=== PATIENT | female | born 1950 | race African-American/Black ===

== ENCOUNTER 2016-02-25 18:11 | Outpatient (CLI) | payer MEDICARE ==
[2016-02-25 20:19] LABS: ALT (SGPT) 12 U/L (0-55); AST (SGOT) 12 U/L (5-34); Alkaline Phosphatase 67 U/L (40-150); Anion Gap 18 mmol/L (10-20); BUN (Urea Nitrogen) 18 mg/dL (9.8-20.1); Bilirubin, Total 0.5 mg/dL (0.2-1.2); Calc. Creatinine Clearance 0 mL/min (70-130); Carbon Dioxide 24 mmol/L (23-31); Chloride 107 mmol/L (98-107); Estimated GFR-MDRD 79; Globulin 3.3 g/dL (2.4-3.5); LDL Cholesterol, Calculated 77 mg/dL; Protein, Total 7.7 g/dL (5.8-8.1)
[2016-02-25 20:29] LABS: #Basophils 0.1 thou/uL (0.0-0.2); #Eosinphils 0.1 thou/uL (0.0-0.7); #Lymphocytes 2.3 thou/uL (1.20-3.40); #Monocytes 0.4 thou/uL (0.11-0.59); #Neutrophils 2.7 thou/uL (1.40-6.50); %Basophils 1.2 % (0.0-1.0); %Eosinophils 1.3 % (0.0-10.0); %Lymphocytes 41.1 % (21.0-51.0); %Monocytes 6.4 % (0.0-10.0); Hematocrit 45.9 % (36.0-47.0); Mean Platelet Volume 7.4 fL (7.4-10.4); Red Blood Cell (RBC) Count 4.65 mill/uL (4.20-5.40); White Blood Cell (WBC) Count 5.5 thou/uL (4.8-10.8)
[2016-02-25 20:42] LABS: Hemoglobin A1c 5.5 % (4.0-6.0)
== END 2016-02-25 18:12 | disposition home or self-care (01) ==
LOC: NAV SJFMSP 18:11
PROVIDERS: ATTEND Family Medicine
DX: E11.9 Type 2 diabetes mellitus without complications (principal); G40.909 Epilepsy, unspecified, not intractable, without status epilepticus
CPT/HCPCS: 80053; 80061; 80177; 82043; 82570; 83036; 84439; 84443; 85025

== ENCOUNTER 2017-03-10 08:42 | Emergency (ER) | payer MEDICARE ==
[2017-03-10] MEDS ORDERED: Sodium Chloride 0.9% 1,000 ML ONE (09:15)
[2017-03-10] MEDS ORDERED: Acetaminophen/Codeine 30-300mg Tablet ONE (09:16)
[2017-03-10 10:00] LABS: #Basophils 0.1 thou/uL (0.0-0.2); #Lymphocytes 0.8 thou/uL (1.20-3.40); #Monocytes 0.6 thou/uL (0.11-0.59); %Basophils 1.3 % (0.0-1.0); %Eosinophils 0.6 % (0.0-10.0); %Lymphocytes 11.8 % (21.0-51.0); %Monocytes 9.8 % (0.0-10.0); %Neutrophils 76.5 % (42.0-75.0); Hemoglobin 12.7 g/dL (12.0-16.0); Mean Corpuscular HGB CONC 30.9 g/dL (32.0-36.0); Mean Corpuscular Hemoglobin 27.1 pg (27.0-31.0); Mean Corpuscular Volume 87.7 fl (81.0-99.0); Mean Platelet Volume 9.3 fL (7.4-10.4); Platelet Count 160 thou/uL (130-400); Red Blood Cell (RBC) Count 4.68 mill/uL (4.20-5.40); White Blood Cell (WBC) Count 6.5 thou/uL (4.8-10.8)
[2017-03-10 10:16] LABS: ALT (SGPT) 13 U/L (8-55); AST (SGOT) 12 U/L (5-34); Alkaline Phosphatase 88 U/L (40-150); Anion Gap 17 mmol/L (10-20); BUN (Urea Nitrogen) 7 mg/dL (9.8-20.1); Bilirubin, Total 0.4 mg/dL (0.2-1.2); Calc. Creatinine Clearance 0 mL/min (70-130); Calcium 9.4 mg/dL (7.8-10.44); Carbon Dioxide 23 mmol/L (23-31); Chloride 103 mmol/L (98-107); Estimated GFR-MDRD Greater than 90; Globulin 3.4 g/dL (2.4-3.5); Glucose 139 mg/dL (80-115); Potassium 3.9 mmol/L (3.5-5.1); Protein, Total 7.4 g/dL (6.0-8.3); Sodium 139 mmol/L (136-145)
[2017-03-10] MEDS ORDERED: Ketorolac Tromethamine 30 MG/ML VIAL ONE (10:51)
--- NOTE | 2017-03-10 11:53 | RAD ---
CHEST PA AND LATERAL: HISTORY: A 66-year-old female with a history of cough, hypertension, diabetes mellitus, coronary artery diseas e, and CVA with cough, congestion, and subjective fever for 3 days. COMPARISON: 12/24/13. FINDINGS: Heart size is within normal limits. Atherosclerosis of the aorta. Postop changes of the cervical sp ine. IMPRESSION: No acute intrathoracic disease. Stable from prior study. POS: [facility]
== END 2017-03-10 11:25 | disposition home or self-care (01) ==
LOC: NAV ERS 08:42
DX: J10.1 Influenza due to other identified influenza virus with other respiratory manifestations (principal); I25.10 Atherosclerotic heart disease of native coronary artery without angina pectoris; E78.5 Hyperlipidemia, unspecified; E11.9 Type 2 diabetes mellitus without complications; I10 Essential (primary) hypertension; F41.9 Anxiety disorder, unspecified; F32.9 Major depressive disorder, single episode, unspecified; Z79.899 Other long term (current) drug therapy; Z79.84 Long term (current) use of oral hypoglycemic drugs
CPT/HCPCS: 71046; 80053; 82553; 83880; 84484; 85025; 87804; 93005; 94640; 96361; 96374; J1885; J7050; J7620

== ENCOUNTER 2018-02-08 17:15 | Emergency (ER) | payer MEDICARE ==
[2018-02-08] MEDS ORDERED: methylPREDNISolone Sod Succ/PF 125 MG/2 ML VIAL ONE (18:01)
== END 2018-02-08 18:20 | disposition home or self-care (01) ==
LOC: NAV ERS 17:15
DX: M54.12 Radiculopathy, cervical region (principal); I25.10 Atherosclerotic heart disease of native coronary artery without angina pectoris; E78.5 Hyperlipidemia, unspecified; I10 Essential (primary) hypertension; K21.9 Gastro-esophageal reflux disease without esophagitis; F41.9 Anxiety disorder, unspecified; F32.9 Major depressive disorder, single episode, unspecified; E11.9 Type 2 diabetes mellitus without complications; J45.909 Unspecified asthma, uncomplicated; Z86.73 Personal history of transient ischemic attack (TIA), and cerebral infarction without residual deficits; Z79.84 Long term (current) use of oral hypoglycemic drugs; Z79.899 Other long term (current) drug therapy
CPT/HCPCS: 36416; 96372; J2930

== ENCOUNTER 2018-07-23 06:45 | Outpatient (CLI) | payer MEDICARE ==
[2018-07-23 07:05] LABS: ALT (SGPT) 9 U/L (8-55); AST (SGOT) 11 U/L (5-34); Albumin 3.5 g/dL (3.4-4.8); Alkaline Phosphatase 94 U/L (40-150); Anion Gap 13 mmol/L (10-20); BUN (Urea Nitrogen) 10 mg/dL (9.8-20.1); Bilirubin, Total 0.3 mg/dL (0.2-1.2); Calc. Creatinine Clearance 0 mL/min (70-130); Calcium 9.2 mg/dL (7.8-10.44); Carbon Dioxide 25 mmol/L (23-31); Chloride 109 mmol/L (98-107); Estimated GFR-MDRD Greater than 90; Globulin 2.9 g/dL (2.4-3.5); Glucose 84 mg/dL (80-115); Protein, Total 6.4 g/dL (6.0-8.3); Sodium 143 mmol/L (136-145)
[2018-07-23 07:34] LABS: Hemoglobin 8.5 g/dL (12.0-16.0); Mean Corpuscular HGB CONC 28.8 g/dL (32.0-36.0); Mean Corpuscular Hemoglobin 24.3 pg (27.0-31.0); Mean Corpuscular Volume 84.3 fL (78.0-98.0); Mean Platelet Volume 7.1 fL (7.4-10.4); Platelet Count 393 thou/uL (130-400); RBC Distribution Width 17.2 % (11.5-14.5); Red Blood Cell (RBC) Count 3.52 mill/uL (4.20-5.40); White Blood Cell (WBC) Count 5.1 thou/uL (4.8-10.8)
== END 2018-07-23 06:46 | disposition home or self-care (01) ==
LOC: NAV LAB 06:45
PROVIDERS: ATTEND Internal Medicine
DX: J44.9 Chronic obstructive pulmonary disease, unspecified (principal); I10 Essential (primary) hypertension; R07.9 Chest pain, unspecified
CPT/HCPCS: 36415; 80053; 84484; 85027

== ENCOUNTER 2020-05-21 16:26 | Inpatient (IN) | payer MEDICARE ==
[2020-05-21] MEDS ORDERED: Ventolin HFA Inhaler 60 PUFF INHALER INH PRN (17:51)
[2020-05-21] MEDS ORDERED: Senokot S 8.6-50 MG TAB PO PRN (17:55)
[2020-05-21] MEDS ORDERED: Dextrose 50% Abboject 50 ML SYRINGE SLOW IVP PRN (17:57)
[2020-05-21] MEDS ORDERED: HumaLOG 300 UNITS/3 ML VIAL SC PRN (17:57)
[2020-05-21] MEDS: Acetaminophen 500 MG TAB PO SCH (19:04)
[2020-05-21] MEDS ORDERED: rOPINIRole HCl 0.5 MG TAB PO SCH (21:00)
[2020-05-21] MEDS: Methocarbamol 500 MG TAB PO SCH (22:18)
[2020-05-21] MEDS: Gabapentin 400 MG CAP PO SCH (22:18)
[2020-05-21] MEDS: rOPINIRole HCl 1 MG TAB PO SCH (22:20)
[2020-05-21] MEDS: Montelukast Sodium 10 mg Tablet PO SCH (22:21)
[2020-05-21] MEDS: Lantus 1000 UNITS/10 ML VIAL SC SCH (22:23)
[2020-05-22] MEDS: Acetaminophen 500 MG TAB PO SCH ×4 (01:16→18:33)
[2020-05-22 05:37] LABS: ALT (SGPT) 12 U/L (8-55); AST (SGOT) 10 U/L (5-34); Albumin 3.6 g/dL (3.4-4.8); Alkaline Phosphatase 80 U/L (40-110); Anion Gap 12 mmol/L (10-20); BUN (Urea Nitrogen) 13 mg/dL (9.8-20.1); Bilirubin, Total 0.2 mg/dL (0.2-1.2); Calc. Creatinine Clearance 84 mL/min (70-130); Carbon Dioxide 23 mmol/L (23-31); Chloride 108 mmol/L (98-107); Glucose 197 mg/dL (80-115); Potassium 3.6 mmol/L (3.5-5.1); Protein, Total 6.6 g/dL (5.8-8.1); Sodium 139 mmol/L (136-145)
[2020-05-22 05:40] LABS: Anisocytosis SLIGHT = 6-15 cells (100X) (0-5/hpf); Band 5 % (5-11); Eosinophils 2 % (0-10); Hemoglobin 9.3 g/dL (12.0-16.0); Hypochromia SLIGHT = 6-15 cells (100X) (0-5/hpf); Lymphocytes 40 % (21-51); MDiff Complete? YES; Mean Corpuscular HGB CONC 28.2 g/dL (32.0-36.0); Mean Corpuscular Volume 84.9 fL (78.0-98.0); Mean Platelet Volume 8.3 fL (7.4-10.4); Metamyelocyte 2 % (0-0); Monocytes 2 % (0-10); Neutrophil 49 % (42-75); Platelet Count 192 thou/uL (130-400); Platelet Morphology Comment Appears Adequate; RBC Distribution Width 17.9 % (11.5-14.5); Red Blood Cell (RBC) Count 3.86 mill/uL (4.20-5.40); White Blood Cell (WBC) Count 4.9 thou/uL (4.8-10.8)
[2020-05-22] MEDS: HumaLOG 300 UNITS/3 ML VIAL SC PRN (05:43)
[2020-05-22] MEDS: Amlodipine 5 MG TAB PO SCH (09:55)
[2020-05-22] MEDS: Multivitamin W/ Minerals 1 TAB PO SCH (09:55)
[2020-05-22] MEDS: Gabapentin 400 MG CAP PO SCH ×3 (09:56→20:40)
[2020-05-22] MEDS: Amitriptyline HCl 25 MG TAB PO SCH (09:58)
[2020-05-22] MEDS: Methocarbamol 500 MG TAB PO SCH ×2 (09:58→20:40)
[2020-05-22] MEDS: Lantus 1000 UNITS/10 ML VIAL SC SCH ×2 (09:59→20:44)
[2020-05-22] MEDS: Polyethylene Glycol 3350 17 GM Packet PO SCH (09:59)
[2020-05-22] MEDS: traMADol HCl 50 MG TAB PO PRN (15:36)
[2020-05-22] MEDS: Montelukast Sodium 10 mg Tablet PO SCH (20:39)
[2020-05-22] MEDS: rOPINIRole HCl 1 MG TAB PO SCH (20:39)
[2020-05-23] MEDS: Acetaminophen 500 MG TAB PO SCH ×4 (01:02→17:57)
[2020-05-23] MEDS: traMADol HCl 50 MG TAB PO PRN (09:30)
[2020-05-23] MEDS: Multivitamin W/ Minerals 1 TAB PO SCH (09:32)
[2020-05-23] MEDS: Gabapentin 400 MG CAP PO SCH ×3 (09:32→21:26)
[2020-05-23] MEDS: Methocarbamol 500 MG TAB PO SCH ×2 (09:32→21:28)
[2020-05-23] MEDS: Amitriptyline HCl 25 MG TAB PO SCH (09:32)
[2020-05-23] MEDS: Amlodipine 5 MG TAB PO SCH (09:35)
[2020-05-23] MEDS: Polyethylene Glycol 3350 17 GM Packet PO SCH (09:36)
[2020-05-23] MEDS: Lantus 1000 UNITS/10 ML VIAL SC SCH ×2 (09:37→21:28)
[2020-05-23 18:01] VITALS: BMI 28.1
[2020-05-23] MEDS: levETIRAcetam 500 MG TAB PO SCH (21:25)
[2020-05-23] MEDS: rOPINIRole HCl 1 MG TAB PO SCH (21:25)
[2020-05-23] MEDS: Montelukast Sodium 10 mg Tablet PO SCH (21:28)
[2020-05-24] MEDS: Acetaminophen 500 MG TAB PO SCH ×5 (00:29→23:34)
[2020-05-24] MEDS: Amitriptyline HCl 25 MG TAB PO SCH (08:35)
[2020-05-24] MEDS: Amlodipine 5 MG TAB PO SCH (08:35)
[2020-05-24] MEDS: Gabapentin 400 MG CAP PO SCH ×3 (08:36→21:09)
[2020-05-24] MEDS: Lantus 1000 UNITS/10 ML VIAL SC SCH ×2 (08:38→21:13)
[2020-05-24] MEDS: levETIRAcetam 500 MG TAB PO SCH ×2 (08:38→21:09)
[2020-05-24] MEDS: Methocarbamol 500 MG TAB PO SCH ×2 (08:38→21:13)
[2020-05-24] MEDS: Multivitamin W/ Minerals 1 TAB PO SCH (08:39)
[2020-05-24] MEDS: Polyethylene Glycol 3350 17 GM Packet PO SCH (08:40)
[2020-05-24] MEDS: HumaLOG 300 UNITS/3 ML VIAL SC PRN (17:16)
[2020-05-24] MEDS: rOPINIRole HCl 1 MG TAB PO SCH (21:11)
[2020-05-24] MEDS: Montelukast Sodium 10 mg Tablet PO SCH (21:12)
[2020-05-24] MEDS: traMADol HCl 50 MG TAB PO PRN (21:12)
[2020-05-25] MEDS: Acetaminophen 500 MG TAB PO SCH ×4 (06:01→23:11)
[2020-05-25] MEDS: traMADol HCl 50 MG TAB PO PRN (06:04)
[2020-05-25] MEDS: Amlodipine 5 MG TAB PO SCH (08:35)
[2020-05-25] MEDS: Amitriptyline HCl 25 MG TAB PO SCH (08:35)
[2020-05-25] MEDS: Gabapentin 400 MG CAP PO SCH ×3 (08:36→20:58)
[2020-05-25] MEDS: Lantus 1000 UNITS/10 ML VIAL SC SCH ×2 (08:38→20:57)
[2020-05-25] MEDS: Methocarbamol 500 MG TAB PO SCH ×2 (08:39→20:57)
[2020-05-25] MEDS: levETIRAcetam 500 MG TAB PO SCH ×2 (08:39→20:57)
[2020-05-25] MEDS: Multivitamin W/ Minerals 1 TAB PO SCH (08:40)
[2020-05-25] MEDS: Polyethylene Glycol 3350 17 GM Packet PO SCH (08:41)
[2020-05-25] MEDS: Hydrochlorothiazide 25 MG TAB PO SCH (09:52)
[2020-05-25] MEDS: rOPINIRole HCl 1 MG TAB PO SCH (20:57)
[2020-05-25] MEDS: Montelukast Sodium 10 mg Tablet PO SCH (20:59)
[2020-05-26] MEDS: Acetaminophen 500 MG TAB PO SCH ×4 (06:06→23:06)
[2020-05-26] MEDS: Methocarbamol 500 MG TAB PO SCH ×2 (08:49→20:25)
[2020-05-26] MEDS: Hydrochlorothiazide 25 MG TAB PO SCH (08:49)
[2020-05-26] MEDS: Multivitamin W/ Minerals 1 TAB PO SCH (08:49)
[2020-05-26] MEDS: levETIRAcetam 500 MG TAB PO SCH ×2 (08:49→20:24)
[2020-05-26] MEDS: Amlodipine 5 MG TAB PO SCH (08:53)
[2020-05-26] MEDS: Gabapentin 400 MG CAP PO SCH ×3 (08:53→20:23)
[2020-05-26] MEDS: Amitriptyline HCl 25 MG TAB PO SCH (08:54)
[2020-05-26] MEDS: Lantus 1000 UNITS/10 ML VIAL SC SCH ×2 (08:55→20:25)
[2020-05-26] MEDS: Polyethylene Glycol 3350 17 GM Packet PO SCH (08:56)
[2020-05-26] MEDS: rOPINIRole HCl 1 MG TAB PO SCH (20:24)
[2020-05-26] MEDS: Montelukast Sodium 10 mg Tablet PO SCH (20:24)
[2020-05-27] MEDS: Acetaminophen 500 MG TAB PO SCH ×3 (05:02→17:51)
[2020-05-27 05:24] LABS: #Eosinphils 0.1 thou/uL (0.0-0.7); #Lymphocytes 1.7 thou/uL (1.20-3.40); #Monocytes 0.5 thou/uL (0.11-0.59); #Neutrophils 2.6 thou/uL (1.40-6.50); %Eosinophils 1.8 % (0.0-10.0); %Lymphocytes 34.5 % (21.0-51.0); %Monocytes 9.4 % (0.0-10.0); %Neutrophils 53.3 % (42.0-75.0); Anisocytosis SLIGHT = 6-15 cells (100X) (0-5/hpf); Hemoglobin 9.3 g/dL (12.0-16.0); Hypochromia SLIGHT = 6-15 cells (100X) (0-5/hpf); MDiff Complete? YES; Mean Corpuscular HGB CONC 27.9 g/dL (32.0-36.0); Mean Corpuscular Hemoglobin 23.5 pg (27.0-31.0); Mean Corpuscular Volume 84.3 fL (78.0-98.0); Mean Platelet Volume 7.8 fL (7.4-10.4); Ovalocytes SLIGHT = 2-5 cells (100X) (0-1/hpf); Platelet Count 227 thou/uL (130-400); Platelet Morphology Comment Appears Adequate; Poikilocytosis SLIGHT = 6-15 cells (100X) (0-5/hpf); Polychromasia SLIGHT = 2-3 cells (100X) (0-2/hpf); RBC Distribution Width 17.1 % (11.5-14.5); Red Blood Cell (RBC) Count 3.98 mill/uL (4.20-5.40); White Blood Cell (WBC) Count 4.9 thou/uL (4.8-10.8)
[2020-05-27 05:27] LABS: Anion Gap 14 mmol/L (10-20); BUN (Urea Nitrogen) 18 mg/dL (9.8-20.1); Calc. Creatinine Clearance 88 mL/min (70-130); Calcium 9.2 mg/dL (7.8-10.44); Carbon Dioxide 24 mmol/L (23-31); Chloride 105 mmol/L (98-107); Glucose 153 mg/dL (80-115); Potassium 3.6 mmol/L (3.5-5.1); Sodium 139 mmol/L (136-145)
[2020-05-27] MEDS: HumaLOG 300 UNITS/3 ML VIAL SC PRN (05:38)
[2020-05-27] MEDS: Gabapentin 400 MG CAP PO SCH ×3 (09:28→20:40)
[2020-05-27] MEDS: Hydrochlorothiazide 25 MG TAB PO SCH (09:29)
[2020-05-27] MEDS: levETIRAcetam 500 MG TAB PO SCH ×2 (09:30→20:40)
[2020-05-27] MEDS: Multivitamin W/ Minerals 1 TAB PO SCH (09:30)
[2020-05-27] MEDS: Methocarbamol 500 MG TAB PO SCH ×2 (09:31→20:40)
[2020-05-27] MEDS: Polyethylene Glycol 3350 17 GM Packet PO SCH ×2 (09:32→15:15)
[2020-05-27] MEDS: Amitriptyline HCl 25 MG TAB PO SCH (09:32)
[2020-05-27] MEDS: Amlodipine 5 MG TAB PO SCH (09:32)
[2020-05-27] MEDS: traMADol HCl 50 MG TAB PO PRN ×2 (09:35→15:11)
[2020-05-27] MEDS: Lantus 1000 UNITS/10 ML VIAL SC SCH ×2 (09:41→20:44)
[2020-05-27] MEDS: rOPINIRole HCl 1 MG TAB PO SCH (20:39)
[2020-05-27] MEDS: Montelukast Sodium 10 mg Tablet PO SCH (20:40)
[2020-05-28] MEDS: Acetaminophen 500 MG TAB PO SCH ×4 (02:37→18:52)
[2020-05-28] MEDS: HumaLOG 300 UNITS/3 ML VIAL SC PRN (05:28)
[2020-05-28] MEDS: Polyethylene Glycol 3350 17 GM Packet PO SCH (09:06)
[2020-05-28] MEDS: Gabapentin 400 MG CAP PO SCH ×3 (09:07→20:38)
[2020-05-28] MEDS: Multivitamin W/ Minerals 1 TAB PO SCH (09:08)
[2020-05-28] MEDS: Hydrochlorothiazide 25 MG TAB PO SCH (09:09)
[2020-05-28] MEDS: levETIRAcetam 500 MG TAB PO SCH ×2 (09:11→20:40)
[2020-05-28] MEDS: Methocarbamol 500 MG TAB PO SCH ×2 (09:11→20:39)
[2020-05-28] MEDS: Amlodipine 5 MG TAB PO SCH (09:11)
[2020-05-28] MEDS: Amitriptyline HCl 25 MG TAB PO SCH (09:12)
[2020-05-28] MEDS: Lantus 1000 UNITS/10 ML VIAL SC SCH ×2 (09:14→20:42)
[2020-05-28] MEDS: traMADol HCl 50 MG TAB PO PRN ×2 (09:18→15:04)
[2020-05-28] MEDS ORDERED: Hydrochlorothiazide 25 MG TAB PO SCH (10:30)
[2020-05-28] MEDS: Montelukast Sodium 10 mg Tablet PO SCH (20:37)
[2020-05-28] MEDS: rOPINIRole HCl 1 MG TAB PO SCH (20:41)
[2020-05-29] MEDS: Acetaminophen 500 MG TAB PO SCH ×3 (01:34→12:33)
[2020-05-29 07:59] VITALS: BP 160/79; TEMP 97.6
[2020-05-29] MEDS: Polyethylene Glycol 3350 17 GM Packet PO SCH (08:45)
[2020-05-29] MEDS: Gabapentin 400 MG CAP PO SCH (08:45)
[2020-05-29] MEDS: Multivitamin W/ Minerals 1 TAB PO SCH (08:45)
[2020-05-29] MEDS: levETIRAcetam 500 MG TAB PO SCH (08:45)
[2020-05-29] MEDS: Methocarbamol 500 MG TAB PO SCH (08:46)
[2020-05-29] MEDS: Amlodipine 5 MG TAB PO SCH (08:46)
[2020-05-29] MEDS: Amitriptyline HCl 25 MG TAB PO SCH (08:46)
[2020-05-29] MEDS: Lantus 1000 UNITS/10 ML VIAL SC SCH (08:47)
[2020-05-29] MEDS ORDERED: Hydrochlorothiazide 25 MG TAB PO SCH (09:00)
== END 2020-05-29 12:30 | disposition home health service (06) | DRG 92 ==
LOC: NAV ACUTE 16:26
PROVIDERS: ADMIT Family Medicine; ATTEND Family Medicine
DX: R26.9 Unspecified abnormalities of gait and mobility (principal); I69.354 Hemiplegia and hemiparesis following cerebral infarction affecting left non-dominant side; I10 Essential (primary) hypertension; J44.9 Chronic obstructive pulmonary disease, unspecified; E78.5 Hyperlipidemia, unspecified; E11.9 Type 2 diabetes mellitus without complications; G40.909 Epilepsy, unspecified, not intractable, without status epilepticus; I25.10 Atherosclerotic heart disease of native coronary artery without angina pectoris; K21.9 Gastro-esophageal reflux disease without esophagitis; Z90.49 Acquired absence of other specified parts of digestive tract; Z96.641 Presence of right artificial hip joint; Z96.651 Presence of right artificial knee joint; Z82.49 Family history of ischemic heart disease and other diseases of the circulatory system; Z83.3 Family history of diabetes mellitus; R53.81 Other malaise; K59.00 Constipation, unspecified; S02.91XD Unspecified fracture of skull, subsequent encounter for fracture with routine healing; S06.6X9D Traumatic subarachnoid hemorrhage with loss of consciousness of unspecified duration, subsequent encounter; W19.XXXD Unspecified fall, subsequent encounter; S06.5X9D Traumatic subdural hemorrhage with loss of consciousness of unspecified duration, subsequent encounter
CPT/HCPCS: 36416; 80048; 80053; 85025; J1815

== ENCOUNTER 2020-09-08 10:44 | Emergency (ER) | payer MEDICARE, SELFPAY ==
[2020-09-08] MEDS ORDERED: HYDROcodone/Acetaminophen 5/325 mg Tablet ONE (11:23)
[2020-09-08] MEDS ORDERED: Ketorolac Tromethamine 30 MG/ML VIAL ONE (12:01)
== END 2020-09-08 13:14 | disposition home or self-care (01) ==
LOC: NAV ERS 10:44
DX: S22.31XA Fracture of one rib, right side, initial encounter for closed fracture (principal); I25.10 Atherosclerotic heart disease of native coronary artery without angina pectoris; E78.5 Hyperlipidemia, unspecified; E78.00 Pure hypercholesterolemia, unspecified; E11.9 Type 2 diabetes mellitus without complications; K21.9 Gastro-esophageal reflux disease without esophagitis; I10 Essential (primary) hypertension; J45.909 Unspecified asthma, uncomplicated; Z79.899 Other long term (current) drug therapy; W18.30XA Fall on same level, unspecified, initial encounter
CPT/HCPCS: 96372; J1885

== ENCOUNTER 2022-06-16 09:32 | Outpatient (CLI) | payer OTHER | END 2022-06-16 09:33 | disposition home or self-care (01) | LOC: NAV CT 09:32 | PROVIDERS: ATTEND Family Medicine | DX: S00.12XA Contusion of left eyelid and periocular area, initial encounter (principal) | CPT/HCPCS: 70450 ==

== ENCOUNTER 2022-11-13 16:00 | Outpatient (CLI) | payer OTHER, SELFPAY | END 2022-11-13 16:01 | disposition home or self-care (01) | LOC: NAV RAD 16:00 | PROVIDERS: ATTEND Student in an Organized Health Care Education/Training Program | DX: M25.562 Pain in left knee (principal); M17.12 Unilateral primary osteoarthritis, left knee ==

== ENCOUNTER 2023-03-07 19:24 | Emergency (ER) | payer MEDICARE, SELFPAY ==
[2023-03-07] MEDS ORDERED: Acetaminophen 500 MG TAB ONE (19:52)
[2023-03-07] MEDS ORDERED: Sodium Chloride 0.9% 1,000 ML ONE (19:53)
[2023-03-07 19:55] LABS: #Basophils 0.1 thou/uL (0.0-0.2); #Eosinphils 0.1 thou/uL (0.0-0.7); #Lymphocytes 1.6 thou/uL (1.20-3.40); #Monocytes 0.7 thou/uL (0.11-0.59); #Neutrophils 6.4 thou/uL (1.40-6.50); %Eosinophils 0.8 % (0.0-10.0); %Lymphocytes 17.6 % (21.0-51.0); %Monocytes 7.6 % (0.0-10.0); Hematocrit 38.7 % (36.0-47.0); Hemoglobin 12.6 g/dL (12.0-16.0); Mean Corpuscular HGB CONC 32.6 g/dL (32.0-36.0); Mean Corpuscular Hemoglobin 30.7 pg (27.0-31.0); Mean Corpuscular Volume 94.3 fl (78.0-98.0); Mean Platelet Volume 8.7 fL (7.4-10.4); Platelet Count 271 10x3/uL (130-400); White Blood Cell (WBC) Count 8.8 10x3/uL (4.8-10.8)
[2023-03-07 20:16] LABS: ALT (SGPT) 11 U/L (8-55); AST (SGOT) 16 U/L (5-34); Alkaline Phosphatase 81 U/L (40-110); Anion Gap 18 mmol/L (10-20); BUN (Urea Nitrogen) 12 mg/dL (9.8-20.1); Bilirubin, Total 0.4 mg/dL (0.2-1.2); Calc. Creatinine Clearance 0 mL/min (70-130); Calcium 9.2 mg/dL (7.8-10.44); Carbon Dioxide 22 mmol/L (23-31); Chloride 100 mmol/L (98-107); Estimated GFR 71; Globulin 3.7 g/dL (2.4-3.5); Glucose 93 mg/dL (83-110); Potassium 3.6 mmol/L (3.5-5.1); Protein, Total 7.7 g/dL (5.8-8.1); Sodium 136 mmol/L (136-145)
[2023-03-07 20:17] LABS: Troponin I 0.023 ng/mL (< 0.028)
[2023-03-07] MEDS ORDERED: Sodium Chloride 0.9% 100 ML ONE (20:19)
[2023-03-07] MEDS ORDERED: cefTRIAXone (ROCEPHIN) 1 GM VIAL ONE (20:19)
[2023-03-07 20:34] LABS: SARS-CoV-2 NAA Rapid Test Not Detected (NotDetected)
[2023-03-07 20:45] LABS: Bilirubin Negative (Negative); Blood, Urine Negative (Negative); Clarity Clear (Clear); Glucose, Urine (Dipstick) Negative (Negative); Ketone, Urine Negative (Negative); Leukocyte Negative (Negative); Nitrite Negative (Negative); Protein, Urine (Dipstick) Negative (Neg-Trace); Specific Gravity, Urine 1.015 (1.005-1.030); Urobilinogen 0.2 mg/dL (Less than 2)
[2023-03-07 20:46] LABS: Bacteria/HPF None Seen HPF (None Seen); CAUTI Indications for Culture Fever or rigors; RBC/HPF None Seen HPF (0-3); Squamous Epithelial None Seen HPF (0-3); WBC/HPF None Seen HPF (0-3)
[2023-03-07 20:47] LABS: Urine Culture Reflex No No
[2023-03-07] MEDS ORDERED: Ketorolac Tromethamine 30 MG (1 mL) VIAL ONE (22:17)
== END 2023-03-07 22:34 | disposition short-term general hospital (02) ==
LOC: NAV ERS 19:24
DX: I96 Gangrene, not elsewhere classified (principal); I25.10 Atherosclerotic heart disease of native coronary artery without angina pectoris; E78.00 Pure hypercholesterolemia, unspecified; E11.9 Type 2 diabetes mellitus without complications; K21.9 Gastro-esophageal reflux disease without esophagitis; I10 Essential (primary) hypertension; Z79.84 Long term (current) use of oral hypoglycemic drugs; Z79.899 Other long term (current) drug therapy
CPT/HCPCS: 36415; 36416; 71045; 80053; 81001; 83605; 83880; 84484; 85025; 87040; 93005; 94760; 96361; 96365; 96375; J0696; J1885; J3490; J7050